=== PATIENT | male | born 1940 | race Caucasian/White ===

== ENCOUNTER → 2018-11-24 | Outpatient (CLI) | payer MEDICARE, BC ==
--- NOTE | 2018-11-24 12:16 | MR ---
EXAMINATION TYPE: MR lumbar spine wo/w con DATE OF EXAM: 11/24/2018 COMPARISON: NONE HISTORY: Chronic back pain on left side TECHNIQUE: T1 and T2 axial and sagittal images of the lumbar spine are submitted. FINDINGS: There is no abnormal signal seen within the visualized spinal cord or paraspinal soft tissu es. There is a curvature the spine with severe degenerative disc disease at all levels with loss of d isc space and signal. Infiltrate in right renal cyst noted. There is a scoliotic curvature of the spi ne. At T12-L1 there is diffuse disc bulging and hypertrophic changes of the facets. Mild central stenosis and bilateral foraminal encroachment. At L1-2 there is diffuse disc bulging with hypertrophic change of the facets and ligamentum flavum. M ild canal stenosis and mild to moderate bilateral foraminal encroachment. At L2-3 there is severe degenerative disc disease with broad-based disc protrusion, hypertrophy of th e ligamentum flavum and facet joints. There is severe left foraminal encroachment and moderate to sev ere right foraminal encroachment with severe canal stenosis. At L3-4 there is severe degenerative disc disease with ligamentum flavum hypertrophy and facet arthro pedro. Broad-based disc bulging results in moderate to severe canal stenosis and bilateral foraminal encroachment. At L4-5 there is there is an anterolisthesis grade 1 L4 on L5. Advanced facet arthropathy and ligamen carli flavum hypertrophy. Broad-based disc bulging results in moderate canal stenosis with bilateral fo raminal encroachment with severe changes seen in the right. At L5-S1 there is facet arthropathy but no disc herniation or canal stenosis. No foraminal encroachme nt. There appears to be a suggestion of possible previous right hemilaminectomy at the level of L5 on the right with the intermediate signal seen in the region of the lamina. Minimal enhancement may rep resent scar tissue extending into the thecal sac which should be correlated with the patient's surgic al history. IMPRESSION: 1. Severe degenerative disc disease at all levels with multilevel foraminal encroachment and multilev el canal stenosis as discussed above findings secondary to hypertrophic changes and broad-based disc bulging or protrusions. 2. Intermediate signal along the posterior elements of L5 on the right suggest possible history of pr evious right hemilaminectomy at the L5 level. Intermediate signal extends to the posterior margin the spinal canal and thecal sac on the right resulting in mild compression which could be related to gra nulation or scar tissue. Correlate clinically.
== END | disposition home or self-care (01) ==
LOC: RADMRIMAIN 08:52
PROVIDERS: ATTEND Internal Medicine Geriatric Medicine
DX: M48.061 Spinal stenosis, lumbar region without neurogenic claudication (principal); M51.36 Other intervertebral disc degeneration, lumbar region; G95.20 Unspecified cord compression
CPT/HCPCS: 72158; A9585